=== PATIENT | male | born 1950 | race Caucasian/White ===

== ENCOUNTER → 2019-11-19 15:36 | Outpatient (CLI) | payer OTHER, SELFPAY ==
[2019-11-19 16:32] LABS: Hematocrit 49.6 % (40-54); Hemoglobin 16.7 g/dL (13.0-16.5)
[2019-11-24 12:07] LABS: Testosterone, Free 38.27 ng/dL (5.00-21.00)
[2019-11-24 17:14] LABS: Testosterone, % Free 3.16 % (1.50-4.20); Testosterone, Total 1211 ng/dL (264-916)
== END ==
PROVIDERS: Referring Provider Orthopaedic Surgery; Visit Provider Orthopaedic Surgery
DX: Z12.5 Encounter for screening for malignant neoplasm of prostate (principal)
CPT/HCPCS: 36415; 84153; 84402; 84403; 85014; 85018; G0103

== ENCOUNTER → 2020-04-19 07:40 | Outpatient (CLI) | payer OTHER, SELFPAY ==
[2020-04-19 08:12] LABS: Hematocrit 44.5 % (40-54); Mean Corp Hgb Conc 33.7 g/dL (32-36); Mean Corpuscular Hgb 32.2 pg (27.0-32.0); Mean Corpuscular Volume 95.5 fL (80-94); Mean Platelet Vol. 9.7 fl (6.2-12.0); Platelet Count 309 K/mm3 (150-450); RBC Distribution Width CV 11.8 % (11.6-14.6); RBC Distribution Width SD 40.8 fl (35.1-43.9); Red Blood Count 4.66 M/mm3 (4.6-6.2); White Blood Count 6.9 K/mm3 (4.4-11.0)
[2020-04-19 08:46] LABS: Cholesterol 172 mg/dL (200); Hemoglobin A1c 5.8 % (3.8-5.6); High Density Lipoprotein 39 mg/dL; Triglycerides 333 mg/dL; Very Low Density Lipoprotein 67 mg/dL (5-40)
[2020-04-23 12:08] LABS: Testosterone, Free 8.11 ng/dL (5.00-21.00)
[2020-04-23 12:55] LABS: Testosterone, Total 338 ng/dL (264-916)
== END ==
PROVIDERS: Referring Provider Orthopaedic Surgery; Visit Provider Orthopaedic Surgery
DX: E78.00 Pure hypercholesterolemia, unspecified (principal); R73.03 Prediabetes
CPT/HCPCS: 36415; 80061; 83036; 84402; 84403; 85027

== ENCOUNTER → 2022-01-30 | Outpatient (CLI) | payer OTHER, SELFPAY ==
[2022-01-30 15:07] LABS: Absolute Lymphocyte Count 1.56 X10^3/uL (0.83-4.51); Absolute Neutrophil Count 3.5 X10^3/uL (2.0-7.7); Basophil# 0.04 X10^3/uL; Basophil% 0.7 % (0-1); Eosinophil# 0.09 X10^3/uL; Eosinophils% 1.6 % (0-5); Hematocrit 41.8 % (40-54); Hemoglobin 14.1 g/dL (13.0-16.5); Lymphocyte # 1.56 X10^3/ul (0.83-4.51); Lymphocyte % 27.2 % (19-41); Mean Corp Hgb Conc 33.7 g/dL (32-36); Mean Corpuscular Hgb 32.5 pg (27.0-32.0); Mean Corpuscular Volume 96.3 fL (80-94); Mean Platelet Vol. 9.5 fl (6.2-12.0); Monocyte# 0.52 X10^3/uL; Monocyte% 9.1 % (0-10); NRBC Flagged by Analyzer 0 % (0-5); Neutrophil # 3.49 X10^3/uL (2.7-7.7); Neutrophil % 60.9 % (47-70); Platelet Count 295 K/mm3 (150-450); RBC Distribution Width CV 12.3 % (11.6-14.6); RBC Distribution Width SD 43.8 fl (35.1-43.9); Red Blood Count 4.34 M/mm3 (4.6-6.2); White Blood Count 5.7 K/mm3 (4.4-11.0)
[2022-01-30 15:48] LABS: AST(SGOT) 28 U/L (15-37); Alanine Aminotransfer ALT/SGPT 39 U/L (16-61); Albumin, Serum 4.1 g/dL (3.2-5.0); Alkaline Phosphatase 121 U/L (45-117); Bilirubin, Direct 0.12 mg/dL (0.00-0.30); Cholesterol 181 mg/dL (200); Globulin 3.3 g/dL (2.2-4.2); High Density Lipoprotein 52 mg/dL; PSA,Total - Annual Screen 1.24 ng/mL (0.00-4.00); Protein, Total 7.4 g/dL (6.4-8.2); Triglycerides 149 mg/dL; Very Low Density Lipoprotein 30 mg/dL (5-40)
[2022-02-08 10:08] LABS: Testosterone, % Free 2.23 % (1.50-4.20); Testosterone, Free 7.67 ng/dL (5.00-21.00)
[2022-02-08 16:18] LABS: Fructosamine 242 umol/L (0-285); Testosterone, Total 344 ng/dL (264-916)
== END | disposition home or self-care (01) ==
LOC: MTLAB 12:51
PROVIDERS: Referring Provider Orthopaedic Surgery; Visit Provider Orthopaedic Surgery
DX: Z00.00 Encounter for general adult medical examination without abnormal findings (principal); Z12.5 Encounter for screening for malignant neoplasm of prostate
CPT/HCPCS: 36415; 80061; 80076; 82985; 83036; 84153; 84402; 84403; 85025; G0103

== ENCOUNTER → 2022-07-02 | Outpatient (CLI) | payer OTHER, SELFPAY ==
[2022-07-02 16:21] LABS: Hemoglobin A1c 6.2 % (3.8-5.6)
[2022-07-02 16:35] LABS: Cholesterol 159 mg/dL (200); High Density Lipoprotein 44 mg/dL; PSA,Total - Annual Screen 2.01 ng/mL (0.00-4.00); Triglycerides 107 mg/dL; Very Low Density Lipoprotein 21 mg/dL (5-40)
[2022-07-06 20:07] LABS: Testosterone, % Free 1.99 % (1.50-4.20); Testosterone, Free 8.74 ng/dL (5.00-21.00); Testosterone, Total 439 ng/dL (264-916)
== END | disposition home or self-care (01) ==
LOC: MTLAB 13:06
PROVIDERS: Referring Provider Orthopaedic Surgery; Visit Provider Orthopaedic Surgery
DX: Z13.9 Encounter for screening, unspecified (principal); Z12.5 Encounter for screening for malignant neoplasm of prostate
CPT/HCPCS: 36415; 80061; 83036; 84153; 84402; 84403; G0103